=== PATIENT | female | born 1985 | race African-American/Black ===

== ENCOUNTER 2016-10-07 08:27 | Emergency (ER) | payer SELFPAY ==
[~2016-10-07] VITALS: Ht 157.5 cm; Wt 80.0 kg
[2016-10-07 08:28] VITALS: BP 134/63; PULSE 78; RESP 15; TEMP 97.9; O2SAT 98
--- NOTE | 2016-10-07 09:18 | PD ---
HPI Chief Complaint: Injury Time Seen by Provider: 09:15 Travel History International Travel<30 days: No Contact w/Intl Traveler<30days: No Traveled to known affect area: No History of Present Illness HPI 31-year-old female presents to the emergency department for evaluation of left ankle injury. The patient states that 3 days ago she was playing volleyball and jumped to the left and accidentally stepped into a hole in the sand. States that she somehow twisted her left ankle. States that she's had swelling and pain in the left ankle aggravated with palpation, movement and weightbearing. States that she has taken Aleve, applied ice and BenGay to the area with minimal improvement of symptoms. Denies any prior injury or trauma to this ankle. Denies , last menstrual period 09/28/15. No other complaints. [facility] Past Medical History Medical History: Denies Significant Hx ?: Not Social History Alcohol Use: No Tobacco Use: No Substance Use: No Allergies-Medications (Allergen,Severity, Reaction): Coded Allergies: No Known Allergies (Unverified , 10/07/16) Reported Meds & Prescriptions Reported Meds & Active Scripts Active No Active Prescriptions or Reported Medications Review of Systems Except as stated in HPI: all other systems reviewed are Neg Physical Exam Narrative GENERAL: Well-nourished and well-developed pleasant patient in no acute distress who is nontoxic appearing. SKIN: Warm and dry. HEAD: Normocephalic and atraumatic. EYES: No injection, drainage, or hyphema noted. PERRLA. EOMI. ENT: No nasal drainage noted. Oropharynx is clear. NECK: Supple and the trachea is midline. CARDIOVASCULAR: Regular rate and rhythm. RESPIRATORY: Breath sounds are equal bilaterally with no accessory muscle use, wheezing, rhonchi, or crackles. EXTREMITY: The left ankle is swollen and tender over the lateral and medial aspect but the skin is intact and there is no ligamentous instability. There is no deformity. The foot and toes are warm and well-perfused. Sensation to pain and light touch is intact. NEUROLOGICAL: Awake, alert, and oriented. Normal speech and gait. Cranial nerves are grossly intact. Data Data Last Documented VS Vital Signs Date Time Temp Pulse Resp B/P Pulse Ox O2 Delivery O2 Flow Rate FiO2 10/07/16 08:28 97.9 78 15 134/63 98 Orders Ankle, Complete ([id number]) (10/07/16 09:14) Ice/Cold Pack (10/07/16 09:14) Splint Or Brace Apply/Monitor (10/07/16 10:00) [facility] Medical Decision Making Medical Screen Exam Complete: Yes Emergency Medical Condition: Yes Differential Diagnosis Ankle sprain versus contusion versus fracture versus other Narrative Course 31-year-old female presents to the emergency department for evaluation of left ankle injury. Patient is afebrile, vital signs are stable. Patient's left lower extremity is neurovascularly intact. X-ray imaging of the left ankle has been ordered and is pending. X-rays negative for any acute abnormalities. This is an ankle sprain. Patient is placed in an Eze wrap and given crutches for ambulation. Discussed supportive care. Advised follow-up with her PCP. Patient verbalizes understanding and agreement with treatment plan. Diagnosis Primary Impression: Left ankle sprain Qualified Code: S93.402A - Sprain of left ankle, unspecified ligament, initial encounter Referrals: Primary Care Physician Patient Instructions: Ankle Sprain (ED), General Instructions Additional Instructions: Eze wrap. Elevate. Use crutches for ambulation. Apply ice for 20 minutes on, 20 minutes off. Take medication as prescribed. Follow-up with your Primary Care Physician. Return to the ED for any acute worsening of symptoms. Med/Other Pt SpecificInfo: No Change to Meds Scripts Naproxen 500 Mg [id number] Mg PO BID 7 Days Ref 0 Prov:Clay Shabazz MD 10/07/16 Disposition: 01 DISCHARGE HOME Condition: Stable Kellie Anderson Oct 07, 2016 09:18 Kellie Anderson Oct 07, 2016 09:18
[2016-10-07] MEDS ORDERED: NAPR500T PO (10:05)
--- NOTE | 2016-10-07 11:15 | RADRPT ---
EXAM DATE/TIME: 10/07/2016 09:59 [facility] COMPARISON: No previous studies available for comparison. INDICATIONS : Left ankle pain, fall. MEDICAL HISTORY : None. SURGICAL HISTORY : None. ENCOUNTER: Initial ACUITY: 3 days PAIN SCORE: 9/10 LOCATION: Left lateral ankle FINDINGS: Three view exam was performed of the left ankle. The bony structures are in normal alignment. No ev idence of fracture, dislocation, or soft tissue swelling. The ankle mortise is intact. No radiopaqu e foreign bodies are seen. Bony mineralization is normal. CONCLUSION: Negative for fracture or dislocation. Followup in 7-10 days is suggested if symptoms persist. Sheldon June MD FACR on October 07, 2016 at 11:09 Board Certified Radiologist. This report was verified electronically.
== END 2016-10-07 10:16 | disposition home or self-care (01) ==
LOC: NEPB 08:27
DX: S93.402A Sprain of unspecified ligament of left ankle, initial encounter (principal); W18.42XA Slipping, tripping and stumbling without falling due to stepping into hole or opening, initial encounter; X50.0XXA Overexertion from strenuous movement or load, initial encounter; Y92.9 Unspecified place or not applicable; Y99.9 Unspecified external cause status; Y93.68 Activity, volleyball (beach) (court)
CPT/HCPCS: 73610; 99283; E0113

== ENCOUNTER 2017-04-05 20:33 | Emergency (ER) | payer SELFPAY ==
[~2017-04-05 20:33] MED LIST: NAPR500T PO
[2017-04-05 20:35] VITALS: BP 136/87; PULSE 81; RESP 16; TEMP 98.2; O2SAT 100
== END 2017-04-05 23:50 | disposition left against medical advice (07) ==
LOC: NED 20:33
DX: R07.9 Chest pain, unspecified (principal); Z53.21 Procedure and treatment not carried out due to patient leaving prior to being seen by health care provider
CPT/HCPCS: 99281

== ENCOUNTER 2017-07-15 03:00 | Emergency (ER) | payer OTHER ==
[~2017-07-15] VITALS: Ht 160 cm; Wt 74.2 kg
[~2017-07-15 03:00] MED LIST changes: -NAPR500T PO; +NAPR500T2 PO
[2017-07-15 03:02] VITALS: BP 151/84; PULSE 66; RESP 18; TEMP 99; O2SAT 97
[2017-07-15] MEDS ORDERED: KETOROLAC TROMETHAMINE 60 MG/2 ML (IM) VIAL IM ONE (03:45)
--- NOTE | 2017-07-15 03:46 | PD ---
HPI Chief Complaint: Abdominal Pain Time Seen by Provider: 03:25 Travel History International Travel<30 days: No Contact w/Intl Traveler<30days: No Traveled to known affect area: No History of Present Illness HPI Patient is a 32-year-old female for 2 days she's been having pressure pain in her lower abdomen denies constipation denies diarrhea she has dysuria it feels strange when it comes out she's never had a UTI denies discharge from her vagina nor bleeding she comes in complaining of lower abdominal pain right more than left no know medical allergies PFSH Past Medical History Medical History: Denies Significant Hx Tetanus Vaccination: Never Vaccinated Influenza Vaccination: No ?: Not LMP: 07/07/17-07/10 : 0 Para: 0 Miscarriage: 1 Past Surgical History Surgical History: No Previous Surgery Social History Alcohol Use: Yes (occ) Tobacco Use: No Substance Use: Yes (marijuana last had yesterday) Allergies-Medications (Allergen,Severity, Reaction): Coded Allergies: No Known Allergies (Unverified Adverse Reaction, Unknown, 07/15/17) Reported Meds & Prescriptions Reported Meds & Active Scripts Active No Active Prescriptions or Reported Medications Review of Systems Except as stated in HPI: all other systems reviewed are Neg Gastrointestinal: Positive: Nausea, Abdominal Pain, No: Vomiting, Diarrhea Genitourinary: Positive: Dysuria Physical Exam Narrative GENERAL: No apparent distress however patient is lying on the stretcher with her right leg in a 45 angle frog-leg position she says it makes the pain better SKIN: Warm and dry. HEAD: Atraumatic. Normocephalic. EYES: Pupils equal and round. No scleral icterus. No injection or drainage. ENT: No nasal bleeding or discharge. Mucous membranes pink and moist. NECK: Trachea midline. No JVD. CARDIOVASCULAR: Regular rate and rhythm. RESPIRATORY: No accessory muscle use. Clear to auscultation. Breath sounds equal bilaterally. GASTROINTESTINAL: Abdomen soft, suprapubic right lower and left lower tenderness , nondistended. Hepatic and splenic margins not palpable. No flank pain no back pain MUSCULOSKELETAL: Extremities without clubbing, cyanosis, or edema. No obvious deformities. NEUROLOGICAL: Awake and alert. No obvious cranial nerve deficits. Motor grossly within normal limits. Five out of 5 muscle strength in the arms and legs. Normal speech. PSYCHIATRIC: Appropriate mood and affect; insight and judgment normal. Data Data Last Documented VS Vital Signs Date Time Temp Pulse Resp B/P (MAP) Pulse Ox O2 Delivery O2 Flow Rate FiO2 07/15/17 06:11 07/15/17 03:02 99.0 66 18 97 Room Air Orders Orders Ketorolac Inj (Toradol Inj) (07/15/17 03:45) Urinalysis - C+S If Indicated (07/15/17 03:37) Abdomen, Flat & Upright (07/15/17 ) Labs Laboratory Tests Test 07/15/17 03:40 Urine Color YELLOW Urine Turbidity HAZY Urine pH 6.0 Urine Specific [place] 1.034 Urine Protein TRACE mg/dL Urine Glucose (UA) NEG mg/dL Urine Ketones NEG mg/dL Urine Occult Blood TRACE Urine Nitrite NEG Urine Bilirubin NEG Urine Urobilinogen LESS THAN 2.0 MG/DL Urine Leukocyte Esterase NEG Urine RBC 4 /hpf Urine WBC 2 /hpf Urine Squamous Epithelial Cells 9 /hpf Urine Renal Epithelial Cells <1 /hpf Urine Bacteria RARE /hpf Microscopic Urinalysis Comment CULT NOT INDICATED MDM Medical Decision Making Medical Screen Exam Complete: Yes Emergency Medical Condition: Yes Differential Diagnosis abdo pain vs uti vs constipation Narrative Course kub normal and Urine analysis was normal discharge for follow up at PCP Diagnosis Primary Impression: Abdominal pain Qualified Codes: R10.84 - Generalized abdominal pain Patient Instructions: Abdominal Pain (ED), General Instructions Additional Instructions: If pain continues or gets worse return to ER for a Cat Scan otherwise follow up with your doctor in next 2 days Scripts No Active Prescriptions or Reported Meds Disposition: 01 DISCHARGE HOME Condition: Yohannes Jacobo MD Jul 15, 2017 03:46
[2017-07-15 04:00] LABS: BACTERIA, URINE RARE /hpf; BLOOD, URINE TRACE (NEG); GLUCOSE,URINE NEG (NEG); KETONE, URINE NEG (NEG); NITRITE,URINE NEG (NEG); RENAL EPITHELIAL CELLS <1 /hpf; SQUAMOUS EPITHELIAL CELL URINE 9 /hpf (0-5); URINE COLOR YELLOW (YELLW/STRAW)
[2017-07-15 04:02] LABS: COMMENT (UR) CULT NOT INDICATED; CULTURE IF INDICATED CULT NOT INDICATED
--- NOTE | 2017-07-15 04:46 | RADRPT ---
EXAM DATE/TIME: 07/15/2017 04:30 [facility] COMPARISON: No previous studies available for comparison. INDICATIONS : Abdominal pain. MEDICAL HISTORY : None. SURGICAL HISTORY : None. ENCOUNTER: Initial ACUITY: 2 days PAIN SCORE: 6/10 LOCATION: all quadrants. FINDINGS: Supine and upright views of the abdomen were performed. The abdominal bowel gas pattern is normal. No air fluid levels are seen. No abnormal masses, calcifications, or organomegaly is seen. The visu alized lower lungs are clear. No evidence of free intraperitoneal gas. The osseous structures are u nremarkable. CONCLUSION: 1. No evidence of obstruction. Jose Vang MD on July 15, 2017 at 4:45 Board Certified Radiologist. This report was verified electronically.
== END 2017-07-15 06:21 | disposition home or self-care (01) ==
LOC: NEPC 03:00
DX: R10.84 Generalized abdominal pain (principal); R11.0 Nausea; R30.0 Dysuria
CPT/HCPCS: 74020; 81001; 96372; 99284; J1885

== ENCOUNTER 2017-11-08 10:24 | Emergency (ER) | payer OTHER ==
[~2017-11-08] VITALS: Ht 157.5 cm; Wt 76.0 kg
[2017-11-08 10:56] VITALS: BP 121/69; PULSE 75; RESP 18; TEMP 98.2; O2SAT 100
--- NOTE | 2017-11-08 11:18 | PD ---
HPI Chief Complaint: Complaint Time Seen by Provider: 11:15 Travel History International Travel<30 days: No Contact w/Intl Traveler<30days: No Traveled to known affect area: No History of Present Illness HPI The patient is a 32-year-old female who presents emergency department for dysuria and hematuria of 2 days' duration. The patient states she developed hematuria on Wednesday, developed dysuria earlier today. She complains of suprapubic discomfort, hematuria, frequency, urgency, and dysuria. She had nausea on Wednesday, denies any vomiting or abdominal pain. She denies any history nephrolithiasis. Patient is , last menstrual cycle was October 17 to the . She denies any current vaginal bleeding or discharge. Symptoms are mild to moderate with no current alleviating or exacerbating factors. She denies any CC fever, chills, or sweats. PFSH Past Medical History Medical History: Denies Significant Hx : 0 Para: 0 Miscarriage: 1 Past Surgical History Narrative Surgical Elective Social History Alcohol Use: Yes (occ) Tobacco Use: No Substance Use: Yes (marijuana last had yesterday) Allergies-Medications (Allergen,Severity, Reaction): Coded Allergies: No Known Allergies (Unverified Adverse Reaction, Unknown, 11/08/17) Reported Meds & Prescriptions Reported Meds & Active Scripts Active No Active Prescriptions or Reported Medications Review of Systems Except as stated in HPI: all other systems reviewed are Neg General / Constitutional: No: Fever Gastrointestinal: Positive: Nausea, No: Vomiting, Abdominal Pain Genitourinary: Positive: Urgency, Frequency, Dysuria, Hematuria, No: Discharge , Vaginal Bleeding Physical Exam Narrative GENERAL: Awake, alert, pleasant 32-year-old female who appears her stated age and is in no acute respiratory distress. SKIN: Focused skin assessment warm/dry. HEAD: Atraumatic. Normocephalic. GASTROINTESTINAL: Abdomen soft, mild suprapubic discomfort. No guarding or rigidity. Back: No CVA tenderness. MUSCULOSKELETAL: No obvious deformities. No clubbing. No cyanosis. No edema. NEUROLOGICAL: Awake and alert. No obvious cranial nerve deficits. Motor grossly within normal limits. Normal speech. PSYCHIATRIC: Appropriate mood and affect; insight and judgment normal. Data Data Last Documented VS Vital Signs Date Time Temp Pulse Resp B/P (MAP) Pulse Ox O2 Delivery O2 Flow Rate FiO2 3/5/18 10:56 98.2 75 18 121/69 (86) 100 Orders Orders Urinalysis - C+S If Indicated (11/08/17 11:15) Ed Urine Pregnancytest Poc (11/08/17 11:15) Urine Culture (11/08/17 11:20) Labs Laboratory Tests Test 11/08/17 11:20 Urine Color YELLOW Urine Turbidity CLOUDY Urine pH 6.5 Urine Specific [place] 1.019 Urine Protein 100 mg/dL Urine Glucose (UA) NEG mg/dL Urine Ketones NEG mg/dL Urine Occult Blood LARGE Urine Nitrite NEG Urine Bilirubin NEG Urine Urobilinogen LESS THAN 2.0 MG/DL Urine Leukocyte Esterase LARGE Urine RBC /hpf Urine WBC /hpf Urine WBC Clumps FEW Urine Squamous Epithelial Cells 8 /hpf Urine Bacteria FEW /hpf Urine Mucus FEW /lpf Microscopic Urinalysis Comment CULTURE INDICATED MDM Medical Decision Making Medical Screen Exam Complete: Yes Emergency Medical Condition: Yes Medical Record Reviewed: Yes Interpretation(s) Laboratory Tests Test 11/08/17 11:20 Urine Color YELLOW Urine Turbidity CLOUDY Urine pH 6.5 Urine Specific [place] 1.019 Urine Protein 100 mg/dL Urine Glucose (UA) NEG mg/dL Urine Ketones NEG mg/dL Urine Occult Blood LARGE Urine Nitrite NEG Urine Bilirubin NEG Urine Urobilinogen LESS THAN 2.0 MG/DL Urine Leukocyte Esterase LARGE Urine RBC /hpf Urine WBC /hpf Urine WBC Clumps FEW Urine Squamous Epithelial Cells 8 /hpf Urine Bacteria FEW /hpf Urine Mucus FEW /lpf Microscopic Urinalysis Comment CULTURE INDICATED Differential Diagnosis Differential diagnosis includes hemorrhagic cystitis, UTI, nephrolithiasis, vaginal bleeding, ectopic , . Narrative Course A bedside UA test was obtained. UA was sent to lab. Bedside UA test was negative. UA reveals large blood, innumerable rbc's, innumerable WBCs, large leukocyte esterase, and bacteria. Patient's symptoms and UA reveal hemorrhagic cystitis. Patient will be placed on Bactrim and Pyridium. She will be provided a copy of her UA results at discharge. She is advised to follow-up with a primary physician. Return if symptoms worsen or progress. Diagnosis Primary Impression: Hemorrhagic cystitis Patient Instructions: General Instructions Additional Instructions: Plenty of fluids to stay hydrated. Medications as directed. Follow-up with a primary physician. Please provide the patient a copy of her labs at discharge. Med/Other Pt SpecificInfo: Prescription(s) given Scripts Phenazopyridine (Pyridium) 100 Mg Tab 200 MG PO Q8H Y for DYSURIA for 2 Days, #12 TAB 0 Refills Prov: Dilshad Diaz MD 11/08/17 Sulfamethoxazole-Trimethoprim (Bactrim DS) 800-160 Mg Tab 1 TAB PO BID for Infection, #14 TAB 0 Refills Prov: Dilshad Diaz MD 11/08/17 Disposition: 01 DISCHARGE HOME Condition: Stable Dilshad Daiz MD Nov 08, 2017 11:18
[2017-11-08 11:53] LABS: BACTERIA, URINE FEW /hpf; BILIRUBIN, URINE NEG (NEG); BLOOD, URINE LARGE (NEG); GLUCOSE,URINE NEG (NEG); KETONE, URINE NEG (NEG); MUCUS URINE FEW /lpf (OCC); NITRITE,URINE NEG (NEG); PH, URINE 6.5 (5.0-8.5); SQUAMOUS EPITHELIAL CELL URINE 8 /hpf (0-5); URINE COLOR YELLOW (YELLW/STRAW); URINE LEUKOCYTE ESTERASE LARGE (NEG); WHITE BLOOD CELL CLUMPS FEW
[2017-11-08] MEDS ORDERED: PHEN0.4T PO (12:48)
[2017-11-08] MEDS ORDERED: BACT800T5 PO (12:48)
== END 2017-11-08 13:19 | disposition home or self-care (01) ==
LOC: NEPD 10:24
DX: N30.90 Cystitis, unspecified without hematuria (principal); B95.7 Other staphylococcus as the cause of diseases classified elsewhere; F12.90 Cannabis use, unspecified, uncomplicated
CPT/HCPCS: 81001; 84703; 86403; 87077; 87086; 87186; 99283

== ENCOUNTER 2018-11-01 07:41 | Inpatient (IN) ==
[2018-11-01] MEDS ORDERED: Sod Chloride 0.9% Inj 1,000 ML IV.CONT PRN (08:12)
[2018-11-01] MEDS ORDERED: Naloxone Inj 0.4 MG/ML Vial IV.PUSH PRN (08:12)
[2018-11-01] MEDS ORDERED: Oxytocin 30 Units/500ml Premix 30 UNITS/500 ML BAG IV.SIG ONE (08:12)
[2018-11-01] MEDS ORDERED: fentaNYL Citrate Inj 100 MCG/2 ML Ampul IV.PUSH PRN ×2 (08:12)
[2018-11-01] MEDS ORDERED: Sodium Chlor 0.9% Inj 500 ML IV.SIG PRN (08:12)
--- NOTE | 2018-11-01 08:14 | ED ---
History of Present Illness Service: [facility] Primary Care Physician: No Primary Care Physician Chief Complaint: Leaking fluid, ctxs History of Present Illness: This 33 y/o female , EDC 11/05/18, EGA 39 3/7 weeks presents to the OB ED with c/o contractions and leaking fluid/blood. She first noticed this at 5 AM. +FM. Her has been complicated by a 13 x 14 x 12 cm fibroid and polyhydramnios. She has been seeing MFM during the . She has had PNC with [facility]. Weeks Gestation:: 39 Para: 0 : 2 Review of Systems All other systems reviewed negative except as stated in HPI PMFSH - History History Provided By: Patient - Medical History Medical History: Medical History (Last Reviewed 11/01/18 @ 08:16 by Cierra Jameson DO) Patient denies medical problems (Acute) Uterine fibroids affecting in third trimester - Surgical History Surgical History: Surgical History (Last Reviewed 11/01/18 @ 08:16 by Cierra Jameson DO) No history of previous surgery (Acute) - Social History I have reviewed the patient's Social History: Yes - Tobacco History Second Hand Smoke Exposure: Yes Smoking Status: Never smoker - Alcohol History How Often Do You Have a Drink Containing Alcohol: Never - Substance Use History Substance History: No History of Abuse - Travel History History of Recent Travel: No Medications and Allergies Allergies Allergy/AdvReac Type Severity Reaction Status Date / Time No Known Allergies Allergy Verified 10/23/18 00:12 Home Medications Medication Instructions Recorded Confirmed Type PNV cmb#95-ferrous fumarate-FA 1 tab PO DAILY 04/21/18 08/18/18 History [] acetaminophen [Tylenol Extra PRN 10/23/18 History Strength] Exam Vital signs: Vital Signs 11/01/18 07:52 Temperature 98.7 F Pulse Rate 90 Respiratory Rate 18 Blood Pressure 115/75 Narrative: GENERAL: Well-nourished, well-developed patient. SKIN: Warm and dry. HEAD: Normocephalic and atraumatic. EYES: No scleral icterus. No injection or drainage. ENT: No nasal drainage noted. Mucous membranes pink. Airway patent. NECK: Supple, trachea midline. No JVD. CARDIOVASCULAR: Regular rate and rhythm without murmurs, gallops, or rubs. RESPIRATORY: Breath sounds equal bilaterally. No accessory muscle use. ABDOMEN/GI: Abdomen soft, non-tender, bowel sounds present, no rebound, no guarding Gravid GENITOURINARY: External Genitalia: intact and normal in appearance BUS glands: [normal] Cervix: [Mid] Dilatation: [1] Effacement: [80] Station: [-2] Presentation: [vtx] Membranes: [ruptured] Uterine Contractions: [every 4-8 min] FHT's: Category: [1] Baseline: [130] Reactive: [Yes] Variability: [Mod] Decels: [None] +Accels EXTREMITIES: No cyanosis or edema. BACK: Nontender without obvious deformity. No CVA tenderness. NEUROLOGICAL: Awake and alert. Motor and sensory grossly within normal limits. Five out of 5 muscle strength in all muscle groups. Normal speech. Results - Labs Group B Strep: Negative Assessment and Plan - Diagnosis (1) Leakage, amniotic fluid Code(s): O42.90 - Premature rupture of membranes, unspecified as to length of time between rupture and onset of labor, unspecified weeks of gestation Status : Acute (2) 39 weeks gestation of Code(s): Z3A.39 - 39 weeks gestation of Status: Acute (3) Fibroids Code(s): D21.9 - Benign neoplasm of connective and other soft tissue, unspecified Status: Acute (4) Polyhydramnios affecting in third trimester Code(s): O40.3XX0 - Polyhydramnios, third trimester, not applicable or unspecified Status: Acute - Plan Admit due to [facility]OM Discharge Plan - Physicians Team ED Provider: Cierra Jameson Primary Care Provider: Primary Care Physici,Katie - Rxs /Orders / Referrals /Forms Prescriptions: No Action acetaminophen [Tylenol Extra Strength] 500 mg tablet 500 mg PO Q6H PRN (Reason: pain) Qty: 20 RF: 0 acetaminophen [Tylenol Extra Strength] 500 mg Tablet PRN (Reason: Pain) PNV cmb#95-ferrous fumarate-FA [] 28 mg iron- 800 mcg Tablet 1 tab PO DAILY - Discharge Instructions Print Language: Danish
[2018-11-01] MEDS ORDERED: Citric Acid/Sodium Citrate Liq 30 ML UDC PO SCH (08:15)
[2018-11-01 08:55] LABS: Baso % (Auto) 0.5 % (0.0-2.0); Eos # (Auto) 0.1 th/mm3 (0.0-0.4); Eos % (Auto) 0.6 % (0.0-4.0); Hemoglobin 13.1 gm/dL (11.6-15.3); Lymph # (Auto) 1.4 th/mm3 (1.0-4.8); Lymph % (Auto) 15.8 % (9.0-44.0); Mean Corpuscular HGB Conc 35.4 % (32.0-36.0); Mean Corpuscular Hemoglobin 27.8 pg (27.0-34.0); Mean Corpuscular Volume 78.5 fL (80.0-100.0); Mean Platelet Volume 8.5 fL (7.0-11.0); Mono # (Auto) 0.7 th/mm3 (0.0-0.9); Mono % (Auto) 7.2 % (0.0-8.0); Neut # (Auto) 6.9 th/mm3 (1.8-7.7); Neut % (Auto) 75.9 % (16.0-70.0); Platelet Count 288 th/mm3 (150-450); Red Blood Count 4.72 mil/mm3 (4.00-5.30); Red Cell Distribution Width 15.6 % (11.6-17.2); White Blood Count 9.1 th/mm3 (4.0-11.0)
--- NOTE | 2018-11-01 09:40 | P.OBGPN ---
Pt doing well. Uncomfortable with ctxs. SVE 3-/-2. FHTs Cat 1.
[2018-11-01 09:47] LABS: Bacteria,Urine Occasional /hpf; Bilirubin,Urine Negative (Negative); Clarity,Urine Cloudy (Clear); Color,Urine Yellow (Yellw/Straw); Glucose,Urine (UA) Negative (Negative); Leukocyte Esterase,Urine Trace (Negative); Mucus,Urine Few /lpf (Occasional); Nitrite,Urine Negative (Negative); Specific Gravity,Urine 1.012 (1.002-1.035); Squamous Epithelial Cell,Urine 12 /hpf (0-5)
--- NOTE | 2018-11-01 11:10 | P.OBGPN ---
Signout received patient seen and evaluated Cervix 5 cm 90% effaced 0 station AROM of forebag copious clear fluid heart rate category 1 Pain management discussed
[2018-11-01] MEDS ORDERED: fentaNYL 2MCG-Bupiv 0.125% Epi 150 ML EPIDURAL ONE (14:08)
[2018-11-01] MEDS ORDERED: fentaNYL Citrate Inj 100 MCG/2 ML Ampul EPIDURAL ONE (14:37)
[2018-11-01] MEDS: fentaNYL 2MCG-Bupiv 0.125% Epi 150 ML EPIDURAL PRN (14:51)
[2018-11-01] MEDS ORDERED: Oxytocin 30 Units/500ml Premix 30 UNITS/500 ML BAG IV.SIG PRN (15:14)
[2018-11-01] MEDS ORDERED: Lidocaine PF 1% Inj 5 ML Vial ONE (15:20)
[2018-11-01] MEDS ORDERED: Sodium Chlor 0.9% Inj 10 ML ONE (15:20)
[2018-11-01] MEDS ORDERED: Lidocaaine 1.5%/Epinephrine 1:200,000 PF Inj 5 ML Amp ONE (15:20)
--- NOTE | 2018-11-01 23:57 | P.OBGPN ---
notified by RN late decelerations noted with Pitocin on board and subsequently discontinued Resolution of late decelerations pelvic exam is now 8 cm 100% effaced 0 station We will continue to monitor
[2018-11-02] MEDS ORDERED: Bupivacaine PF 0.25% Inj 10 ML Vial ONE (01:45)
[2018-11-02] MEDS ORDERED: Lidocaine 2%/Epinephrine 1:200,000 PF 10 ML SDV ONE (01:45)
[2018-11-02] MEDS: fentaNYL 2MCG-Bupiv 0.125% Epi 150 ML EPIDURAL PRN (02:21)
[2018-11-02] MEDS ORDERED: Azithromycin Inj 500 MG in Sodium Chlor 0.9% Inj 250 ML IV.SIG ONE (02:52)
[2018-11-02] MEDS ORDERED: ceFAZolin Inj 3,000 MG in Sodium Chlor 0.9% Inj 100 ML IV.SIG SCH (03:00)
[2018-11-02] MEDS ORDERED: Citric Acid/Sodium Citrate Liq 30 ML UDC PO SCH (03:00)
[2018-11-02] MEDS ORDERED: ceFAZolin 2 GM Premix Inj 2 GM/50 ML PIGGYBACK IV.SIG ONE (03:09)
[2018-11-02] MEDS ORDERED: Morphine Sulfate PF Inj 5 MG/10 ML Ampul ONE (03:09)
--- NOTE | 2018-11-02 03:09 | P.OBGPN ---
Preoperative note notified of cervical edema, and now maternal temp with tachycardia Patient given 1 g of acetaminophen and also 50 mg of Benadryl Patient seen and evaluated-cervical exam previously 8 cm now secondary to cervical edema 6, with caplet and molding present heart rate consistent with tachycardia Discussed with the patient at this time all signs and symptoms are leading to failure to progress Alternatives benefits complications discussed Patient was informed that she would have a myomectomy with discussed with patient this is a clean contaminated case and also the risk of not only infection but bleeding only if the myomas pedunculated would consider removal Complication including but not limited to permanent injury to the bowel bladder nerves blood vessels ureters any structures in the abdomen or pelvis. Infection hemorrhage morbidity mortality related surgery under anesthesia related procedures. Remote possibility of . Reoperation risk. Unforeseen injury. Patient expressed verbal understanding. In route to OR. Antibiotics ordered
[2018-11-02] MEDS ORDERED: fentaNYL Citrate Inj 250 MCG/5 ML Ampul ONE (04:30)
[2018-11-02] MEDS ORDERED: Oxytocin 30 Units/500ml Premix 30 UNITS/500 ML BAG IV.SIG ONE (04:52)
--- NOTE | 2018-11-02 05:18 | P.OP ---
- Preoperative Diagnosis (1) Failure to progress in second stage of labor (2) 39 weeks gestation of - Postoperative Diagnosis (1) Fibroid, uterine (2) Adhesion of omentum (3) Umbilical hernia Date of procedure: 11/02/18 Procedure: Primary low uterine segment transverse section Myomectomy Extensive lysis of adhesions Partial omentectomy Umbilical hernia repair Anesthesia: epidural Surgeon: Estephanie Davey MD Fire Prevention Inspector: Gloria Green Fire Prevention Inspector: House Parent Intra-Op did not scrub-general surgeon see his program evaluation consultant note Estimated blood loss (mL): 1,200 Pathology: other (Myoma degenerating and partial omentum) Operation and Findings: Patient in labor with cervical arrest at 8 cm. Cervical edema, no cervical change for greater than 2 hours in spite of adequate contractions. Of note maternal fever as well as tachycardia consistent with chorioamnionitis. Patient was subsequently counseled for delivery secondary to failure to progress. Patient also has a myoma which she is requesting removal but discussed with the patient since is a clean contaminated case only if noted to be pedunculated or problematic would remove Intra-Op. She was counseled of alternatives benefits complications including but not limited to permanent injury to the bowel bladder nerves blood vessels ureters any structures in abdomen or pelvis. Infection hemorrhage morbidity mortality related surgery and/or anesthesia related procedures even remote possibility of . Unforeseen injury reoperation risk. Patient expressed verbal understanding. Subsequently she was taken to the OR where the epidural allergies he was found to be adequate. Note she was examined based on the location of the myoma and the size that was noted by palpation anywhere from 7- 10 cm decision to proceed with a midline abdominal incision. Antibiotics given. Prepped and draped in normal sterile fashion. Timeout performed. SCDs in place. A midline incision was made through the skin approximately 2 cm below the umbilicus. A second knife was used to incise the fascia, then subsequently extended superiorly and inferiorly. Towards the lateral aspect of the rectus abdominis muscle noted the peritoneum and subsequently tented with hemostat x2 and then incised sharply with care to avoid the bowel. Once incised palpation demonstrates a large myoma which is adherent to the omentum. The myoma was subsequently deflected into the right upper quadrant to proceed with the delivery. Once access was obtained to the lower uterine segment and Miko retractor was placed for visualization. The vesicouterine peritoneum was identified, the bladder flap was subsequently created with Ismeal in place. The Rush was subsequently repositioned. The lower uterine segment was identified. A transverse incision on the lower uterine segment which was subsequently extended laterally digitally. Delivery of the vertex followed by the remainder of the body a viable male Apgars 1 9 delivered note suctioned on the field and taken to NICU. Proceeded to deliver the uterus adnexa do appear to be within normal limits. The uterus was cleared of all clot and debris after the placenta was delivered please note cord blood was collected. Proceeded to close the uterine incision with 1 chromic in a running locked fashion followed by second imbricating Lembert suture good hemostasis was noted. Once the uterine incision was closed and noted to be hemostatic proceeded to reevaluate the myoma which at the pedunculated edges note that the myoma was subserosal located superior to the lower uterine segment was noted to be quite friable and bleeding actively proceeded to perform myomectomy. Intraoperative consult with general surgery was called secondary to the multiple adhesions noted of the omentum. The myoma in a progressive fashion was clamped with Soraida clamps x2 along the base of the stalk and then subsequently excised using cautery. This was performed serially and then subsequently tied the stumps with Vicryl figure of 8 0 until hemostasis was achieved. Once the myoma was excised was excised from the uterine aspect proceeded to lyse the adhesions with a moist lap. At this point the myoma was completely freed from the omentum and the uterus. The general surgeon appeared recommendation any large defects of the omentum to suture with Vicryl and any fingerlike projections to remove to decrease the incidence of postoperative bowel obstruction. Proceeded to inspect the omentum as recommended by general surgeon proceeded to remove any fingerlike projections of the omentum using a Soraida clamp cautery and tied with Vicryl. 2 areas where the defect was noted to be approximately 2 cm which could accommodate a bowel subsequently ligated with Vicryl in a continuous fashion. The omentum was noted to have viable healthy flow. Copious irrigation with saline. Subsequently Interceed placed and repositioned to the pelvic abdominal cavity. The uterus was repositioned the pelvic abdominal cavity. The site was noted to be hemostatic however the bed of the myoma where the pedunculated stalk minimal oozing noted which was readily controlled with a Bovie pencil as well as application of baseball suture using 1 chromic. Once hemostasis was achieved proceeded to Place Interceed on the uterine incision as well as the stump from the myomectomy. Note all surgical sites were noted to be hemostatic proceeded to close. Upon palpating the umbilicus although not entered there was a significant sized defect and proceeded to close the hernia with 2 figure- of-eight 0 Vicryl in efforts to hopefully decrease the incidence of umbilical herniation. Then identify the fascia which was closed with 1 PDS in a continuous fashion. The subcutaneous fat was reapproximated with 1 chromic in an interrupted fashion using mattress style sutures. The skin was closed with Monocryl on a Ben needle. Patient tired procedure well sponge lap needle counts correct x2 patient taken to recovery room in stable condition. Note status is stable as well. Will plan a CBC immediate postop and repeat in 3 hours EBL 1200 cc.
[2018-11-02 05:23] LABS: Cord Arterial Blood HCO3 24.2
[2018-11-02 06:07] LABS: Baso % (Auto) 0.1 % (0.0-2.0); Hematocrit 32.5 % (35.0-46.0); Hemoglobin 11.2 gm/dL (11.6-15.3); Lymph # (Auto) 0.2 th/mm3 (1.0-4.8); Lymph % (Auto) 1.2 % (9.0-44.0); Mean Corpuscular HGB Conc 34.5 % (32.0-36.0); Mean Corpuscular Hemoglobin 27.7 pg (27.0-34.0); Mean Corpuscular Volume 80.3 fL (80.0-100.0); Mean Platelet Volume 8.3 fL (7.0-11.0); Mono # (Auto) 0.7 th/mm3 (0.0-0.9); Mono % (Auto) 3.6 % (0.0-8.0); Neut # (Auto) 19.4 th/mm3 (1.8-7.7); Neut % (Auto) 95.1 % (16.0-70.0); Platelet Count 237 th/mm3 (150-450); Red Blood Count 4.05 mil/mm3 (4.00-5.30); Red Cell Distribution Width 15.2 % (11.6-17.2); White Blood Count 20.4 th/mm3 (4.0-11.0)
[2018-11-02] MEDS ORDERED: Oxytocin 30 Units/500ml Premix 30 UNITS/500 ML BAG ONE (06:11)
--- NOTE | 2018-11-02 06:18 | MB ---
cc: Tom Cohen MD DATE: 11/02/2018 TIME: 4:00 a.m. PERSON REQUESTING CONSULTATION: Estephanie Davey MD REASON FOR CONSULTATION: Stat consult for intraoperative finding during emergency , omental involvement by fibroid. HISTORY OF PRESENT ILLNESS: The patient is a 33-year-old female who underwent admission to labor and delivery at [facility] on 11/01/2018. The patient is G2, P0, with estimated date of confinement of 11/05/2018, estimated gestational age of 39 and 3/7 weeks. The patient has a known fibroid of 14 cm that has complicated her as well as polyhydramnios. The patient was initially admitted for labor; however, she had failure to progress and required emergency , as well as signs of distress. Upon , the expected fibroid was noted. There was some bleeding from this noted as well and the OB physician did need to do an emergency resection of the fibroid due to bleeding from this. During this dissection and her procedure, she noted that there was a large area of dense adhesion from the omentum to the fibroid. This was dissected off as best as possible; however, there was some potential nonviability of the omentum after the dissection. General surgery was stat consulted for intraoperative consultation for evaluation of the omentum and exam as well as possibility of assist. PHYSICAL EXAMINATION: The patient is in the OB delivery room, has undergone with an enlarged post gravid uterus, status post fibroid myomectomy. The patient's omentum appears essentially normal for the majority of the omentum coming off of the transverse colon; however, there are a few very small areas of contusion and blood clot at the tip that was the portion involved in the fibroid. Some of these appear to be potentially nonviable due to trauma from the myomectomy. All visualized viscera through the incision are within normal limits. ASSESSMENT AND PLAN: The patient is a 33-year-old female with some minor omental trauma after emergency and myomectomy. After closely inspecting this omentum, I did recommend to the OB physician that any small portion of the omentum that was traumatized or possibly devascularized with myomectomy should be resected. This could be done standard technique with a hemostat and silk or Vicryl ties. The OB physician felt comfortable and felt that it was within her technical capabilities to safely perform this on this patient. She did not request that I scrub in and perform any procedures. We will be available to see this patient if any further need arises. Otherwise, I do not anticipate any significant risk of complications or any further need for general surgery. Again, thank you very much for this consultation, and we are pleased to hear that the patient's baby and mother are doing well. Tom Cohen MD AWG/rw , 04:45 AM , 04:54 AM
[2018-11-02] MEDS ORDERED: Oxytocin 30 Units/500ml Premix 30 UNITS/500 ML BAG IV.SIG PRN (09:53)
[2018-11-02] MEDS: Ketorolac Inj 30 MG/ML (IVP) Vial IV.PUSH PRN ×2 (11:06→21:55)
[2018-11-02] MEDS: Piperacil/Tazo 3.375 GM Premix 3.375 GM/50 ML PIGGYBACK IV.SIG SCH ×3 (11:08→18:28)
[2018-11-02] MEDS: Acetaminophen Inj 650 MG/65 ML VIAL IV.SIG PRN ×3 (14:13→21:58)
[2018-11-03] MEDS: Piperacil/Tazo 3.375 GM Premix 3.375 GM/50 ML PIGGYBACK IV.SIG SCH ×5 (00:41→23:51)
[2018-11-03] MEDS: Acetaminophen Inj 650 MG/65 ML VIAL IV.SIG PRN (05:24)
[2018-11-03] MEDS: Ketorolac Inj 30 MG/ML (IVP) Vial IV.PUSH PRN (05:24)
[2018-11-03] MEDS ORDERED: Bisacodyl 10 MG Supp RECTAL ONE (07:27)
--- NOTE | 2018-11-03 08:50 | P.PNOB ---
Subjective Post op day: 1 Interval history: Patient's pain is well-controlled. She has been NPO since surgery. She is asking to advance diet. Denies any nausea or vomiting. Patient reports minimal bleeding. Patient has has not had gas or bowel movement. Patient is walking without lower extremity pain or shortness of breath. Patient reports desire for contraception outpatient. Objective Vital Signs/I&O: Vital Signs 11/02/18 11:45 11/02/18 17:15 11/02/18 20:40 Temperature 99.5 F 98.1 F 98.3 F Pulse Rate 83 77 72 Respiratory Rate 18 18 18 Blood Pressure 105/57 L 102/67 100/61 11/02/18 23:40 11/03/18 08:00 Temperature 98.2 F 98.1 F Pulse Rate 72 78 Respiratory Rate 18 18 Blood Pressure 94/59 L 104/53 L Intake & Output 11/02/18 11/03/18 11/03/18 18:59 06:59 18:59 Intake Total 465 / 465 165 / 165 Balance 465 / 465 165 / 165 Intake: IV 465 / 465 165 / 165 Ofirmev Inj 650 mg In 65 ml @ 65 / 65 65 / 65 400 mls/hr IV.SIG Q6H PRN Rx#: [id number] Azithromycin Inj 500 MG In NS 250 / 250 Inj 250 ML @ 250 mls/hr IV.SIG ONCE ONE Rx#:[id number] Zosyn 3.375 GM Premix 3.375 gm 50 / 50 100 / 100 In 50 ml @ 100 mls/hr IV.SIG Q6H REJI Rx#:[id number] Result Diagrams: 11/02/18 05:30 Objective Remarks: GENERAL: Well-nourished, well-developed patient. CARDIOVASCULAR: Regular rate and rhythm without murmurs, gallops, or rubs. RESPIRATORY: Breath sounds equal bilaterally. No accessory muscle use. ABDOMEN/GI: Abdomen soft, non-tender, bowel sounds present. Incision: Clean, dry and intact dressing with covering binder. Fundus: Firm, non-tender at umbilicus. GENITOURINARY: Light to moderate bleeding. EXTREMITIES: No cyanosis or edema, non-tender, without signs of DVT. Medications and IVs: Active Medications Citric Acid/Sodium Citrate (Sodium Citrate/Citric Acid Liq) 30 ml PO LICENSED MENTAL HEALTH PROFESSIONAL [facility] Stop: 11/06/18 02:59 Diphenhydramine HCl (Benadryl Inj) 50 mg IV.PUSH Q6H PRN PRN Reason: ITCHING Last Admin: 11/03/18 07:55 Dose: 50 mg Diphtheria/Pertussis/Tetanus Vacc (Boostrix Vaccine Inj) 0.5 ml IM .ONCE ONE Stop: 11/03/18 16:01 Fentanyl/Bupivacaine/Sodium Chlor (Fentanyl 2 Mcg-Bupiv 0.125% Epi) 150 mls @ 10 mls/hr EPIDURAL PRN PRN PRN Reason: for Labor Pain Last Admin: 11/02/18 02:21 Dose: 10 mls/hr Oxytocin (Pitocin 30 Units/Ns 500 Ml Premix) 30 units in 500 mls @ 2 mls/hr IV.SIG TITRATE PRN; Protocol PRN Reason: Pain Scale 5 To 10 Last Admin: 11/01/18 15:39 Dose: 2 milliunit/min, 2 mls/hr Lactated Ringer's (Lr 1000 Ml Inj) 1,000 mls @ 100 mls/hr IV.CONT .Q10H [facility] Last Admin: 11/02/18 06:01 Dose: 150 mls/hr Oxytocin (Pitocin 30 Units/Ns 500 Ml Premix) 30 units in 500 mls @ 100 mls/hr IV.SIG UNSCH PRN PRN Reason: Heavy bleeding Piperacillin/Tazobactam/Dextrose (Zosyn 3.375 Gm Premix) 3.375 gm in 50 mls @ 100 mls/hr IV.SIG Q6H REJI Last Admin: 11/03/18 07:55 Dose: 100 mls/hr Acetaminophen (Ofirmev Inj) 650 mg in 65 mls @ 400 mls/hr IV.SIG Q6H PRN PRN Reason: PAIN SCALE 1 TO 10 Last Admin: 11/03/18 05:24 Dose: 400 mls/hr Ibuprofen (Motrin) 800 mg PO Q8H PRN PRN Reason: cramping Ketorolac Tromethamine (Toradol Inj) 15 mg IV.PUSH Q6H PRN PRN Reason: PAIN SCALE 1 TO 10 Last Admin: 11/03/18 05:24 Dose: 15 mg Measles/Mumps/Rubella Vaccine Live (M-M-R Ii Vaccine Inj) 0.5 ml SQ .ONCE ONE Stop: 11/03/18 16:01 Ondansetron HCl (Zofran Inj) 4 mg IV.PUSH Q6H PRN PRN Reason: NAUSEA OR VOMITING Oxycodone/Acetaminophen (Percocet 5/325 Mg) 1 tab PO Q4H PRN PRN Reason: PAIN SCALE 3 TO 5 Oxycodone/Acetaminophen (Percocet 5/325 Mg) 2 tab PO Q4H PRN PRN Reason: PAIN SCALE 6 TO 10 Senna/Docusate Sodium (Hollie-Colace) 2 tab PO Q12H PRN PRN Reason: CONSTIPATION Simethicone (Mylicon Chew) 80 mg PO QID PRN PRN Reason: FLATULENCE Sodium Chloride (Ns Flush) 2 ml IV.FLUSH BID REJI Last Admin: 11/02/18 23:13 Dose: Not Given Sodium Chloride (Ns Flush) 2 ml IV.FLUSH PRN PRN PRN Reason: FLUSH AFTER USING IV ACCESS Assessment and Plan - Diagnosis (1) S/P myomectomy Code(s): Z98.890 - Other specified postprocedural states Status: Acute (2) S/P hernia repair Code(s): Z98.890 - Other specified postprocedural states; Z87.19 - Personal history of other diseases of the digestive system Status: Acute (3) Delivery by section of full-term Code(s): O82 - Encounter for delivery without indication Status: Acute - Plan Patient is a 33-year-old delivered at 39 weeks and 4 days. Patient is day 1 after , myomectomy, partial omentectomy, and umbilical hernia repair. due to cervical edema and tachycardia. Received ancef, azithromycin, and zosyn during operation. Patient was counseled to do 6 weeks of pelvic rest. Patient was counseled to follow up in 6 weeks. Patient requested follow-up and contraception. --Continue zosyn 48hrs post op --advance diet from NPO to clear liquids --Decrease LR fluids from 150 to 100 mL/hr --AF VSS --Continue routine care --Motrin and Percocet when necessary for pain --Encourage OOB --Pelvic rest for 6 weeks will need follow-up appointment at that time. --Contraception: OCP outpatient Patient discussed with Dr. Jameson
[2018-11-03] MEDS ORDERED: Diphtheria/Tetanus/Pertussis Vaccine Inj 0.5 ML Syringe IM ONE (16:00)
[2018-11-03] MEDS ORDERED: Measles/Mumps/Rubella Vaccine Inj 0.5 ML Vial SQ ONE (16:00)
[2018-11-03] MEDS: Senna/Docusate Sodium 8.6/50 MG Tablet PO PRN (22:06)
[2018-11-03] MEDS: Simethicone 80 MG Chew Tablet PO PRN (22:07)
[2018-11-04] MEDS: Piperacil/Tazo 3.375 GM Premix 3.375 GM/50 ML PIGGYBACK IV.SIG SCH (05:35)
[2018-11-04] MEDS: Simethicone 80 MG Chew Tablet PO PRN ×3 (05:41→20:31)
--- NOTE | 2018-11-04 08:57 | P.PNOB ---
Subjective Post op day: 2 Interval history: Postoperative day number 2. AFVSS overnight. Pain minimal. Incision not draining. Decreased lochia. Denies dysuria. No breast tenderness. She is feeding the baby via breast and formula. Appetite good. No nausea or vomiting. Passing flatus. No bowel movement. Ambulating well. Denies calf pain, shortness of breath, or cough. Otherwise, she is doing well this morning and has no other complaints. Objective Vital Signs/I&O: Vital Signs 11/03/18 20:00 Temperature 98.5 F Pulse Rate 93 H Respiratory Rate 20 Blood Pressure 117/63 Intake & Output 11/03/18 11/04/18 11/04/18 18:59 06:59 18:59 Intake Total 100 / 100 50 / 50 Balance 100 / 100 50 / 50 Intake: IV 100 / 100 50 / 50 Zosyn 3.375 GM Premix 3.375 gm 100 / 100 50 / 50 In 50 ml @ 100 mls/hr IV.SIG Q6H [facility] Rx#:[id number] Result Diagrams: 11/02/18 05:30 Objective Remarks: GENERAL: Well-nourished, well-developed patient. CARDIOVASCULAR: Regular rate and rhythm without murmurs, gallops, or rubs. RESPIRATORY: Breath sounds equal bilaterally. No accessory muscle use. ABDOMEN/GI: Abdomen soft, non-tender, few bowel sounds present. Incision: Clean, dry and intact. Fundus: Firm, non-tender at umbilicus. GENITOURINARY: Light to moderate bleeding. EXTREMITIES: No cyanosis or edema, non-tender, without signs of DVT. Medications and IVs: Active Medications Citric Acid/Sodium Citrate (Sodium Citrate/Citric Acid Liq) 30 ml PO AUTO DAMAGE ESTIMATOR [facility] Stop: 11/06/18 02:59 Diphenhydramine HCl (Benadryl Inj) 50 mg IV.PUSH Q6H PRN PRN Reason: ITCHING Last Admin: 11/03/18 07:55 Dose: 50 mg Fentanyl/Bupivacaine/Sodium Chlor (Fentanyl 2 Mcg-Bupiv 0.125% Epi) 150 mls @ 10 mls/hr EPIDURAL PRN PRN PRN Reason: for Labor Pain Last Admin: 11/02/18 02:21 Dose: 10 mls/hr Oxytocin (Pitocin 30 Units/Ns 500 Ml Premix) 30 units in 500 mls @ 2 mls/hr IV.SIG TITRATE PRN; Protocol PRN Reason: Pain Scale 5 To 10 Last Admin: 11/01/18 15:39 Dose: 2 milliunit/min, 2 mls/hr Oxytocin (Pitocin 30 Units/Ns 500 Ml Premix) 30 units in 500 mls @ 100 mls/hr IV.SIG UNSCH PRN PRN Reason: Heavy bleeding Acetaminophen (Ofirmev Inj) 650 mg in 65 mls @ 400 mls/hr IV.SIG Q6H PRN PRN Reason: PAIN SCALE 1 TO 10 Last Admin: 11/03/18 05:24 Dose: 400 mls/hr Ibuprofen (Motrin) 800 mg PO Q8H PRN PRN Reason: cramping Last Admin: 11/04/18 05:35 Dose: 800 mg Ondansetron HCl (Zofran Inj) 4 mg IV.PUSH Q6H PRN PRN Reason: NAUSEA OR VOMITING Oxycodone/Acetaminophen (Percocet 5/325 Mg) 1 tab PO Q4H PRN PRN Reason: PAIN SCALE 3 TO 5 Last Admin: 11/03/18 17:18 Dose: 1 tab Oxycodone/Acetaminophen (Percocet 5/325 Mg) 2 tab PO Q4H PRN PRN Reason: PAIN SCALE 6 TO 10 Last Admin: 11/04/18 05:35 Dose: 2 tab Senna/Docusate Sodium (Hollie-Colace) 2 tab PO Q12H PRN PRN Reason: CONSTIPATION Last Admin: 11/03/18 22:06 Dose: 2 tab Simethicone (Mylicon Chew) 80 mg PO QID PRN PRN Reason: FLATULENCE Last Admin: 11/04/18 05:41 Dose: 80 mg Sodium Chloride (Ns Flush) 2 ml IV.FLUSH BID REJI Last Admin: 11/03/18 22:16 Dose: Not Given Sodium Chloride (Ns Flush) 2 ml IV.FLUSH PRN PRN PRN Reason: FLUSH AFTER USING IV ACCESS Assessment and Plan - Diagnosis (1) S/P myomectomy Code(s): Z98.890 - Other specified postprocedural states Status: Acute (2) S/P hernia repair Code(s): Z98.890 - Other specified postprocedural states; Z87.19 - Personal history of other diseases of the digestive system Status: Acute (3) Delivery by section of full-term infant Code(s): O82 - Encounter for delivery without indication Status: Acute - Plan Patient is a 33-year-old delivered at 39 weeks and 4 days. Patient is day 2 after , myomectomy, partial omentectomy, and umbilical hernia repair. due to cervical edema and tachycardia. Received ancef, azithromycin, and zosyn during operation and zosyn 48 hrs post op. Patient was counseled to do 6 weeks of pelvic rest. Patient was counseled to follow up in 6 weeks. Patient requested follow-up and contraception. --Con't clear liquid diet until improvement in bowel sounds, which may be around this afternoon. Con't to provide dulcolax supp to encourage BM and passing of flatus --On LR fluids 100 mL/hr --AF VSS --Continue routine care --Motrin and Percocet when necessary for pain --Encourage OOB --Pelvic rest for 6 weeks will need follow-up appointment at that time. --Contraception: OCP outpatient -- DC after 1-[address] Patient discussed with Dr. Moya
[2018-11-04] MEDS ORDERED: Bisacodyl 10 MG Supp RECTAL ONE (09:12)
[2018-11-04] MEDS: Senna/Docusate Sodium 8.6/50 MG Tablet PO PRN (15:47)
[2018-11-05 08:27] VITALS: BP 111/70; PULSE 70; TEMP 98
--- NOTE | 2018-11-05 08:27 | P.PNOB ---
Subjective Post op day: 3 Interval history: Patient seen and examined this morning. AFVSS overnight. Postoperative day # 3. Pain well controlled. Incision not draining. Decreased lochia. Denies dysuria. No breast tenderness. Patient has been on clear liquid diet, will advance diet as tolerated this morning. No nausea or vomiting. Positive flatus. 2 bowel movements thus far since after surgery. Ambulating well. Denies chest pain, fever, chills calf pain, shortness of breath, or cough. She otherwise has no other complaints or concerns this morning. Objective Vital Signs/I&O: Vital Signs 11/04/18 08:48 11/04/18 15:43 11/04/18 20:00 Temperature 97.9 F 98.3 F 98.2 F Pulse Rate 75 80 80 Respiratory Rate 18 18 18 Blood Pressure 109/68 122/74 127/79 Result Diagrams: 11/02/18 05:30 Objective Remarks: GENERAL: Well-nourished, well-developed patient. CARDIOVASCULAR: Regular rate and rhythm without murmurs, gallops, or rubs. RESPIRATORY: Breath sounds equal bilaterally. No accessory muscle use. ABDOMEN/GI: Abdomen soft, non-tender, bowel sounds present. Incision: Clean, dry and intact. Fundus: Firm, non-tender at umbilicus. GENITOURINARY: Light bleeding. EXTREMITIES: No cyanosis or edema, non-tender, without signs of DVT. Medications and IVs: Active Medications Citric Acid/Sodium Citrate (Sodium Citrate/Citric Acid Liq) 30 ml PO CIVIL SERVICE CLERK REJI Stop: 11/06/18 02:59 Diphenhydramine HCl (Benadryl Inj) 50 mg IV.PUSH Q6H PRN PRN Reason: ITCHING Last Admin: 11/03/18 07:55 Dose: 50 mg Fentanyl/Bupivacaine/Sodium Chlor (Fentanyl 2 Mcg-Bupiv 0.125% Epi) 150 mls @ 10 mls/hr EPIDURAL PRN PRN PRN Reason: for Labor Pain Last Admin: 11/02/18 02:21 Dose: 10 mls/hr Oxytocin (Pitocin 30 Units/Ns 500 Ml Premix) 30 units in 500 mls @ 2 mls/hr IV.SIG TITRATE PRN; Protocol PRN Reason: Pain Scale 5 To 10 Last Admin: 11/01/18 15:39 Dose: 2 milliunit/min, 2 mls/hr Oxytocin (Pitocin 30 Units/Ns 500 Ml Premix) 30 units in 500 mls @ 100 mls/hr IV.SIG UNSCH PRN PRN Reason: Heavy bleeding Acetaminophen (Ofirmev Inj) 650 mg in 65 mls @ 400 mls/hr IV.SIG Q6H PRN PRN Reason: PAIN SCALE 1 TO 10 Last Admin: 11/03/18 05:24 Dose: 400 mls/hr Ibuprofen (Motrin) 800 mg PO Q8H PRN PRN Reason: cramping Last Admin: 11/05/18 08:03 Dose: 800 mg Ondansetron HCl (Zofran Inj) 4 mg IV.PUSH Q6H PRN PRN Reason: NAUSEA OR VOMITING Oxycodone/Acetaminophen (Percocet 5/325 Mg) 1 tab PO Q4H PRN PRN Reason: PAIN SCALE 3 TO 5 Last Admin: 11/05/18 08:03 Dose: 1 tab Oxycodone/Acetaminophen (Percocet 5/325 Mg) 2 tab PO Q4H PRN PRN Reason: PAIN SCALE 6 TO 10 Last Admin: 11/04/18 05:35 Dose: 2 tab Senna/Docusate Sodium (Hollie-Colace) 2 tab PO Q12H PRN PRN Reason: CONSTIPATION Last Admin: 11/04/18 15:47 Dose: 2 tab Simethicone (Mylicon Chew) 80 mg PO QID PRN PRN Reason: FLATULENCE Last Admin: 11/04/18 20:31 Dose: 80 mg Sodium Chloride (Ns Flush) 2 ml IV.FLUSH BID REJI Last Admin: 11/04/18 20:32 Dose: 2 ml Sodium Chloride (Ns Flush) 2 ml IV.FLUSH PRN PRN PRN Reason: FLUSH AFTER USING IV ACCESS Assessment and Plan - Diagnosis (1) Delivery by section of full-term Code(s): O82 - Encounter for delivery without indication Status: Acute (2) S/P myomectomy Code(s): Z98.890 - Other specified postprocedural states Status: Acute (3) S/P hernia repair Code(s): Z98.890 - Other specified postprocedural states; Z87.19 - Personal history of other diseases of the digestive system Status: Acute - Plan Patient is a 33-year-old delivered at 39 weeks and 4 days. Patient is day 3 after , myomectomy, partial omentectomy, and umbilical hernia repair. due to cervical edema and tachycardia. Received ancef, azithromycin, and zosyn during operation and zosyn 48 hrs post op. Patient was counseled to do 6 weeks of pelvic rest. Patient was counseled to follow up in 6 weeks. Patient requested follow-up and contraception. --patient has tolerated liquid diet well, will advance diet this morning. --On LR fluids 100 mL/hr --AF VSS --Continue routine care --Motrin and Percocet when necessary for pain --Encourage OOB --Pelvic rest for 6 weeks will need follow-up appointment at that time. --Contraception: OCP outpatient --Dispo: plan to discharge patient today if tolerate regular diet well Patient discussed with Dr. CASANOVA - Attending Attestation care discussed and managed w. PGY 2
[2018-11-05 08:44] VITALS: RESP 17
== END 2018-11-05 12:10 | disposition home or self-care (01) | DRG 786 ==
LOC: HOBED 07:41 → H2E 08:10 → H1EA 11-02 06:37
PROVIDERS: ADMIT Obstetrics & Gynecology; ATTEND Obstetrics & Gynecology
CPT/HCPCS: 36430; 59025; 76937; 81001; 82805; 83518; 84112; 85025; 86850; 86900; 86901; 86923; 88305; 88307; 99285; C1765; J0131; J0456; J0690; J1200; J1885; J2274; J2405; J2543; J2590; J3010; J7050; J7120; P9016